=== PATIENT | male | born 1990 | race Caucasian/White ===

== ENCOUNTER 2016-12-01 18:36 | Emergency (ER) | payer OTHER | END 2016-12-01 20:00 | disposition left against medical advice (07) | LOC: DL.ED 18:36 | DX: Z53.21 Procedure and treatment not carried out due to patient leaving prior to being seen by health care provider (principal) ==

== ENCOUNTER 2016-12-02 10:31 | Emergency (ER) | payer OTHER ==
[2016-12-02] MEDS ORDERED: Diphtheria,Pertussis(Acell),Tetanus Vaccine 0.5 ML SDV IM ONE (10:45)
[2016-12-02 10:46] VITALS: BP 150/78
--- NOTE | 2016-12-02 10:55 | EDM.PDOC ---
ED HPI Skin/Rash - General Chief Complaint: Laceration Stated Complaint: [id number] CUT FINGER AT WORK 12/01/16 Time Seen by Provider: 12/02/16 10:40 Source: Reports: Patient History Limitations: Reports: No limitations - History of Present Illness INITIAL COMMENTS - FREE TEXT/NARRATIVE: this 26 yo male patient reports to the ED with a laceration to his left distal 2nd finger. The patient reports he cut his finger last night with a knife while at work at [employer]. The patient washed the area after the incident and has placed glue on the wound. Symptom Onset Date: 12/02/16 Timing: Reports: still present Location, Skin: Reports: upper extremity, left Severity: mild Known Identified Source: yes Place of Occurrence: work - Related Data Allergies Allergy/AdvReac Type Severity Reaction Status Date / Time amoxicillin [From Augmentin] Allergy Cannot Verified 12/02/16 10:42 Remember clavulanic acid Allergy Cannot Verified 12/02/16 10:42 [From Augmentin] Remember Home Meds: Ambulatory Orders Medication Instructions Recorded Confirmed . [No Known Home Meds] 12/02/16 12/02/16 Past Medical History - Past Health History Medical/Surgical History: Denies Medical/Surgical History Social & Family History - Tobacco Use Smoking Status *Q: Current Every Day Smoker Years of Tobacco use: 11 Packs/Tins Daily: 1 - Recreational Drug Use Recreational Drug Use: No ED ROS GENERAL - Review of Systems Review Of Systems: ROS reveals no pertinent complaints other than HPI. ED EXAM, SKIN/RASH Exam: See Below Exam Limited By: No limitations General Appearance: alert, WD/WN, no apparent distress Eye Exam: bilateral eye: EOMI, normal inspection, PERRL Ears: normal external exam, normal canal, hearing grossly normal, normal TMs Nose: normal inspection, normal mucosa, no blood Throat/Mouth: Normal inspection, Normal lips, Normal teeth, Normal gums, Normal oropharynx, Normal voice, No airway compromise Head: atraumatic, normocephalic Neck: normal inspection, supple, non-tender, full range of motion Respiratory/Chest: no respiratory distress, lungs clear, normal breath sounds, no accessory muscle use, chest non-tender Cardiovascular: normal peripheral pulses, regular rate, rhythm, no edema, no gallop, no JVD, no murmur, no rub GI/Abdominal: normal bowel sounds, soft, non tender, no organomegaly, no distention, no abnormal bruit, no mass (Male) Exam: Deferred Rectal (Males) Exam: Deferred Back Exam: normal inspection, full range of motion, NT Extremities: normal inspection, normal range of motion, non-tender, no pedal edema, normal capillary refill Neurological: alert, oriented, CN II-XII intact, normal cognition, normal gait, normal reflexes, no motor/sensory deficits Psychiatric: normal affect, normal mood Skin: Warm, Dry, Normal color, No rash Location, Skin: upper extremity, left Characteristics: linear, other (The patient had already placed superglue on the wound prior to reporting to the ed. ) Lymphatic: no adenopathy Course - Vital Signs Last Recorded V/S: Last Vital Signs Temp 36.2 C 12/02/16 10:42 Pulse 71 12/02/16 10:42 Resp 18 12/02/16 10:42 BP 150/78 H 12/02/16 10:42 Pulse Ox 100 12/02/16 10:42 - Orders/Labs/Meds Orders: Active Orders 24 hr Category Date Time Status Vaccines to be Administered [RC] PER UNIT ROUTINE Care 12/02/16 10:45 Ordered Meds: Medications Discontinued Medications Generic Name Dose Route Start Last Admin Trade Name Freq PRN Reason Stop Dose Admin Diphtheria/Tetanus/Acell Pertussis 0.5 ml 12/02/16 10:45 Adacel IM 12/02/16 10:46 .ONCE ONE Departure - Departure Time of Disposition: 10:53 Disposition: Home, Self-Care 01 Condition: good Clinical Impression: Laceration of left index finger Instructions: Laceration Care, Adult, Spzt-on-Tpto Forms: ED Department Discharge Care Plan Goals: The patient was advised of the examination results during the visit. The patient was given an Adacel injection while in the ED. The patient was encouraged to keep the area clean and dry until healed. If the patient has any additional symptoms or concerns, the patient should follow-up with his primary care facility or return to the emergency department. - My Orders Last 24 Hours: My Active Orders 12/02/16 10:45 Vaccines to be Administered [RC] PER UNIT ROUTINE - Assessment/Plan Last 24 Hours: My Active Orders 12/02/16 10:45 Vaccines to be Administered [RC] PER UNIT ROUTINE
== END 2016-12-02 11:11 | disposition home or self-care (01) ==
LOC: DL.ED 10:31
DX: S61.211A Laceration without foreign body of left index finger without damage to nail, initial encounter (principal); F17.210 Nicotine dependence, cigarettes, uncomplicated; Z88.1 Allergy status to other antibiotic agents; Z88.8 Allergy status to other drugs, medicaments and biological substances; Z23 Encounter for immunization; W26.0XXA Contact with knife, initial encounter; Y99.0 Civilian activity done for income or pay
CPT/HCPCS: 90715; 99283

== ENCOUNTER 2017-07-25 18:44 | Emergency (ER) | payer OTHER ==
[2017-07-25] MEDS ORDERED: Lidocaine 1% 30 ML SDV INJECT ONE (19:00)
[2017-07-25] MEDS ORDERED: Silver Nitrate Applicator Each TOP ONE (20:32)
[2017-07-25] MEDS ORDERED: Silver Nitrate Applicator Each ONE (20:34)
[2017-07-25 20:52] VITALS: BP 139/73
--- NOTE | 2017-07-25 20:52 | EDM.PDOC ---
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 Band released on presentation to ED. Onset: Today Location: Reports: Upper Extremity, Left Left 1-Thumb Pain Score (Numeric/FACES): 4 - Related Data Allergies Allergy/AdvReac Type Severity Reaction Status Date / Time amoxicillin [From Augmentin] Allergy Cannot Verified 07/25/17 19:38 Remember clavulanic acid Allergy Cannot Verified 07/25/17 19:38 [From Augmentin] Remember Home Meds: Home Meds . [No Known Home Meds] 12/02/16 [History] Past Medical History - Past Health History Medical/Surgical History: Denies Medical/Surgical History Musculoskeletal History: Reports: Other (See Below) Other Musculoskeletal History: wrist fracture - Past Surgical History HEENT Surgical History: Reports: Oral Surgery, Other (See Below) Other HEENT Surgeries/Procedures: Jaw surgery Social & Family History - Tobacco Use Smoking Status *Q: Current Every Day Smoker Years of Tobacco use: 11 Packs/Tins Daily: 0.2 - Caffeine Use Caffeine Use: Reports: Coffee, Energy Drinks - Alcohol Use Days Per Week of Alcohol Use: 1 Number of Drinks Per Day: 2 Total Drinks Per Week: 2 - Recreational Drug Use Recreational Drug Use: No ED ROS GENERAL - Review of Systems Review Of Systems: ROS reveals no pertinent complaints other than HPI. ED EXAM, SKIN/RASH Exam: See Below Exam Limited By: No Limitations General Appearance: Alert, Anxious Eye Exam: Bilateral Eye: EOMI Ears: Normal External Exam Nose: Normal Inspection Throat/Mouth: Normal Inspection Neck: Full Range of Motion Respiratory/Chest: No Respiratory Distress Cardiovascular: Normal Peripheral Pulses, Regular Rate, Rhythm Neurological: Alert, Oriented, Normal Cognition Psychiatric: Anxious Skin: Wound/Incision Location, Skin: Upper Extremity, Left (distal thumb medially clean traumatic avulsion of fat pad. nail intact. small active arterial bleeder noted. ) ED SKIN PROCEDURES - Laceration/Wound Repair Left Finger Lac/Wound length In cm: 0.5 Appearance: Subcutaneous, Clean Distal NVT: Neuro & Vascular Intact Anesthetic Type: Local Local Anesthesia - Lidocaine (Xylocaine): 1% Plain Local Anesthetic Volume: 1cc Skin Prep: Chlorhexidine (Hibiciens), Saline Closed with: Other (silvernitrate cautery of arterial and surgicel ) Sterile Dressing Applied: Provider Tetanus Status Addressed: Yes Complications: No Progress/Comments: Bleeding controlled, Dressing applied. Course - Vital Signs Last Recorded V/S: Last Vital Signs Temp 100.2 F 07/25/17 20:51 Pulse 80 07/25/17 20:51 Resp 16 07/25/17 20:51 BP 139/73 07/25/17 20:51 Pulse Ox 95 07/25/17 20:51 - Orders/Labs/Meds Meds: Medications Discontinued Medications Generic Name Dose Route Start Last Admin Trade Name Natalee PRN Reason Stop Dose Admin Lidocaine HCl 30 ml 07/25/17 19:00 07/25/17 20:51 Xylocaine-Mpf 1% INJECT 07/25/17 19:01 1.5 ml ONETIME ONE Administration Silver Nitrate 1 each 07/25/17 20:32 07/25/17 20:50 Silver Nitrate TOP 07/25/17 20:33 Not Given ONETIME ONE Silver Nitrate Confirm 07/25/17 20:34 07/25/17 20:50 Silver Nitrate Administered 07/25/17 20:35 1 each Dose Administration 1 each .ROUTE .ST-MED ONE - Re-Assessments/Exams Free Text/Narrative Re-Assessment/Exam: 07/25/17 20:53 active bleeding unrelieved with pressure, small arterial bleed visible, continued with surgicel. Resolved with siver nitrate to bleeder then surgicel. Tube payal dressing. Departure - Departure Time of Disposition: 20:46 Disposition: Home, Self-Care 01 Condition: Good Clinical Impression: Avulsion, finger tip Qualifiers: Encounter type: initial encounter Qualified Code(s): S61.209A - Unspecified open wound of unspecified finger without damage to nail, initial encounter - Discharge Information Forms: ED Department Discharge Additional Instructions: elevate thumb maintain dressing recheck in clinic on Thursday am for dressing change. tylenol or ibuprofen for discomfort
== END 2017-07-25 21:07 | disposition home or self-care (01) ==
LOC: DL.ED 18:44
DX: S61.012A Laceration without foreign body of left thumb without damage to nail, initial encounter (principal); F17.210 Nicotine dependence, cigarettes, uncomplicated; Z88.1 Allergy status to other antibiotic agents; W45.8XXA Other foreign body or object entering through skin, initial encounter; Y93.89 Activity, other specified; Y99.0 Civilian activity done for income or pay
CPT/HCPCS: 12001; 99283